=== PATIENT | male | born 1990 | race Caucasian/White ===

== ENCOUNTER 2016-10-28 17:36 | Emergency (ER) | payer OTHER ==
[~2016-10-28] VITALS: Ht 175.3 cm; Wt 77.1 kg
[2016-10-28] MEDS: GLUCAGON,HUMAN RECOMBINANT 1 MG/ML VIAL. IV ONE (18:25)
[2016-10-28] MEDS: IV NORMAL SALINE 1000ML BAG 1,000 ML IV ONE (18:25)
[2016-10-28] MEDS: NIFEdipine 10 MG CAPSULE PO ONE (18:39)
[2016-10-28] MEDS ORDERED: fentaNYL PF VIAL 100 MCG/2 ML VIAL ONE (20:09)
[2016-10-28] MEDS ORDERED: MIDAZOLAM HCL/PF 5 MG/5 ML VIAL. ONE (20:09)
[2016-10-28] MEDS ORDERED: diphenhydrAMINE 50 MG/ML VIAL ONE (20:47)
[2016-10-28] MEDS: diphenhydrAMINE 50 MG/ML VIAL IV ONE (20:51)
[2016-10-28] MEDS: MIDAZOLAM HCL/PF 5 MG/5 ML VIAL. IV ONE ×3 (20:53→20:59)
[2016-10-28] MEDS: fentaNYL PF VIAL 100 MCG/2 ML VIAL IV ONE ×3 (20:55→21:01)
--- NOTE | 2016-10-28 21:19 | PHYS DOC ---
Past Medical History Past Medical History: Other Additional Past Medical Histor: NECK ROTATION Past Surgical History: No Surgical History Alcohol Use: Occasionally Additional Information: REPORTS HAVING 4 BEERS TODAY Drug Use: None Adult General Chief Complaint Chief Complaint: DIFFICULTY SWALLOWING HPI HPI Patient is a 26 year old male brought to the ED by his girlfriend with the complaint of not able to swallow. The patient was eating a "turkey leg" about 1- 1/2 hours ago when it got stuck and since then he has been unable to swallow. He states this has happened about 2 times in the last 4-6 months. Each time, did end up passing and he did not have to see a doctor about it. He has never had endoscopy. Patient is spitting his saliva. She has no chronic medical problems. He does not take medications regularly. Review of Systems Review of Systems Constitutional: Denies fever or chills [] Respiratory: Denies shortness of breath [] GI: Denies abdominal pain, nausea, vomiting Current Medications Current Medications Current Medications Medications (Trade) Dose Ordered Sig/Ayana Start Time Stop Time Status Last Admin Dose Admin Diphenhydramine HCl (Benadryl) 50 mg STK-MED ONCE 10/28/16 20:51 10/28/16 20:56 DC 10/28/16 20:51 50 MG Fentanyl Citrate (Fentanyl 2ml Vial) 100 mcg STK-MED ONCE 10/28/16 21:01 10/28/16 21:02 DC 10/28/16 21:01 25 MCG Glucagon (Glucagen) 1 mg 1X ONCE 10/28/16 18:15 10/28/16 18:16 DC 10/28/16 18:25 1 MG Midazolam HCl (Versed) 5 mg STK-MED ONCE 10/28/16 20:59 10/28/16 21:00 DC 10/28/16 20:59 1 MG Nifedipine (Procardia) 10 mg 1X ONCE 10/28/16 18:15 10/28/16 18:16 DC 10/28/16 18:39 10 MG Sodium Chloride 1,000 ml @ 200 mls/hr 1X ONCE 10/28/16 18:15 10/28/16 21:40 DC 10/28/16 18:25 200 MLS/HR Allergies Allergies Allergies Coded Allergies Type Severity Reaction Last Updated Verified Unable to Assess 10/28/16 No Physical Exam Physical Exam Constitutional: Well developed, well nourished, no acute distress, non-toxic appearance. Alert, mentating normally, warm and dry, able to talk without difficulty. He is spitting saliva into a basin. HENT: Normocephalic, atraumatic, bilateral external ears normal, nose normal. [] Eyes: conjunctiva normal, no discharge. [] Neck: Normal range of motion, no stridor. [] Cardiovascular:Heart rate regular rhythm, no murmur [] Lungs & Thorax: Bilateral breath sounds clear to auscultation [] Skin: Warm, dry, no erythema, no rash. [] Extremities: No tenderness, no cyanosis, no clubbing, ROM intact, no edema. [] Neurologic: Alert and oriented X 3, normal motor function, normal sensory function, no focal deficits noted. [] Current Patient Data Vital Signs Vital Signs Date Time Temp Pulse Resp B/P (MAP) Pulse Ox O2 Delivery O2 Flow Rate FiO2 10/28/16 21:25 86 16 121/73 95 Room Air 10/28/16 21:04 2 10/28/16 17:53 98.4 98.4 EKG EKG [] Radiology/Procedures Radiology/Procedures [] Course & Med Decision Making Course & Med Decision Making Pertinent Labs and Imaging studies reviewed. (See chart for details) 26-year-old male who presents with an esophageal food bolus. I discussed with the patient that we will try some IV medications and if that does not work, GI will come in. He is agreeable to that plan. The patient was given IV glucagon and sublingual Procardia. After 30-40 minutes , he had no movement of the esophageal food bolus. He ultimately more comfortable but was still spitting his saliva. I tried a small sip of water trial. He spit it right back up. I spoke with Dr. Perez, GI, who came in and took the patient to the GI lab for endoscopy. The patient was discharged from the ED to go to the GI lab and they will make final disposition. [] Dragon Disclaimer Dragon Disclaimer This electronic medical record was generated, in whole or in part, using a voice recognition dictation system. Departure Departure Impression: Primary Impression: Food impaction of esophagus Disposition: HOME, SELF-CARE Condition: IMPROVED Referrals: NO PCP (PCP) SILVIA FERRER MD Oct 28, 2016 21:19
[2016-10-28 21:25] VITALS: BP 121/73
--- NOTE | 2016-10-29 01:57 | CONS ---
DATE OF CONSULTATION: 10/28/2016 REASON FOR CONSULTATION: Esophageal obstruction and dysphagia. HISTORY OF PRESENT ILLNESS: This is a 26-year-old male whose past medical history is significant for intermittent dysphagia who was seen with meat impaction after eating a turkey drumstick at a local festival. He denies any history of heartburn. Denies change in his weight or appetite. He only takes amitriptyline as his only medication. He not smoke or drink in excess. Otherwise without additional complaints. PAST MEDICAL HISTORY: Dysphagia. ALLERGIES: None. MEDICATIONS: Amitriptyline. FAMILY AND SOCIAL HISTORY: He is in the . He does not drink or smoke in excess. FAMILY HISTORY: Noncontributory. REVIEW OF SYSTEMS: As per records. PHYSICAL EXAMINATION: GENERAL: Reveals a well-nourished, well-developed male who is alert and cooperative in mild distress. VITAL SIGNS: He is afebrile, pulse is 90, respiratory rate of 18 and blood pressure is 130/70. HEENT: Normocephalic and atraumatic head. Pupils and extraocular muscles are not tested. Sclerae is anicteric. NECK: Supple. LUNGS: Clear. CARDIOVASCULAR: Reveals an S1, S2 without S3, S4 or appreciable murmur. ABDOMEN: Reveals a soft abdomen, normal bowel sounds ____ appreciable hepatosplenomegaly without any crepitus. EXTREMITIES: Reveals no cyanosis, clubbing or edema. IMPRESSION: Dysphagia with intermittent food impactions most likely secondary to Schatzki's ring, eosinophilic esophagitis, Benítez's, achalasia, Zenker's diverticulum and/or malignancy certainly in the differential. Upper endoscopy, possible foreign body extraction, biopsy and dilatation have been recommended. Risks and benefits including risk of hemorrhage and perforation were discussed with the patient who is willing to proceed at this time. I would like to thank Dr. Yates for allowing us to consult and participate in this patient's care. EM WALL MD DR: LALO/eunice JOB#: [id number] / [id number] SILVIA Cardoso MD
== END 2016-10-28 20:15 | disposition home or self-care (01) ==
LOC: ER 17:36
DX: T18.128A Food in esophagus causing other injury, initial encounter (principal); W22.8XXA Striking against or struck by other objects, initial encounter; Y93.89 Activity, other specified; Y92.89 Other specified places as the place of occurrence of the external cause; Y99.8 Other external cause status
CPT/HCPCS: 96361; 96374; 96375; 99284; J1200; J1610; J2250; J3010; J7030